=== PATIENT | male | born 1965 | race Caucasian/White ===

== ENCOUNTER 2021-07-07 21:25 | Emergency (ER) | payer OTHER ==
[2021-07-07 22:54] LABS: HEMOGLOBIN 15.1 gm/dl (14.0-17.5); RED BLOOD COUNT 4.76 M/UL (4.20-5.50); WHITE BLOOD COUNT 12.9 K/UL (4.5-11.0)
[2021-07-07 23:14] LABS: BUN/CREATININE RATIO 23 (0-10)
[2021-07-08] MEDS ORDERED: OMNICEF 300 MG300 MG PO (00:28)
== END 2021-07-08 01:17 | disposition home or self-care (01) ==
LOC: ER1 21:25
PROVIDERS: Family Medicine
DX: N30.91 Cystitis, unspecified with hematuria (principal); N32.89 Other specified disorders of bladder; R10.2 Pelvic and perineal pain; F17.200 Nicotine dependence, unspecified, uncomplicated; Z88.0 Allergy status to penicillin; J44.9 Chronic obstructive pulmonary disease, unspecified; Z87.442 Personal history of urinary calculi
CPT/HCPCS: 80053; 81001; 83690; 85025; 85610; 96374; 99284; J0696; Q9967